=== PATIENT | male | born 1950 | race Hispanic/Latino ===

== ENCOUNTER 2019-10-08 05:48 | Inpatient (IN) | payer MEDICARE, SELFPAY ==
[2019-10-01 09:20] VITALS: BMI 38.0
[2019-10-08] VITALS (16 sets, daily range): BP systolic 106–145; BP diastolic 70–95; PULSE 58–80; RESP 10–17; TEMP 35.8–36.7; O2SAT 94–100; BMI 38.7
[2019-10-08] MEDS: LACTATED RINGERS 1,000 ML 42 ML IV ×2 (07:00→10:38)
[2019-10-08] MEDS: CELECOXIB 200 MG CAPSULE PO (07:06)
[2019-10-08] MEDS: PREGABALIN 75 MG CAPSULE PO (07:06)
[2019-10-08] MEDS: ACETAMINOPHEN 325 MG TABLET 975 MG PO ×2 (07:06→22:16)
[2019-10-08] MEDS: VANCOMYCIN 1,000 MG/200 ML PIGGYBACK 200 MG IV ×2 (07:13→19:07)
--- NOTE | 2019-10-08 07:40 | PM.PREOP ---
Pre-operative Note Interval Note History & Physical reviewed/Exam performed by Physician: Yes Changes to H&P: No
--- NOTE | 2019-10-08 07:59 | SUR.PREOP ---
Block start time [0744] . Monitoring initiated and maintained throughout procedure. Oxygen given per anesthesiologist instructions. Medications given by anesthesiologist. Patient remained stable throughout procedure, no adverse reactions noted. Block end time [0756].
[2019-10-08] MEDS: GENTAMICIN 200 MG in SODIUM CHLORIDE 0.9% 100 ML 105 ML IV (08:10)
--- NOTE | 2019-10-08 08:57 | SUR.OPER ---
Beach chair with Skytron shoulder positioner. Lower body on padded OR bed. Head in foam padded head cradle, secured with straps. Non-operative arm secured <90 degrees abduction. Pillow under knees. Safety belt at thigh. Cloth tape over blanket over lower legs.
[2019-10-08] MEDS: LIDOCAINE 1% W/EPI 20 ML INJ (09:25)
--- NOTE | 2019-10-08 10:00 | PM.PROC.1 ---
Procedures Date/Time Date of procedure: 10/08/19 Time of procedure: 07:40 General Procedure description: Ultrasound guided interscalene brachial plexus nerve block for post op pain control after R total shoulder arthroplasty by Dr. Shah. Risk and benefits of procedure discussed with patient. ASA monitoring applied to patient. O2 given via nasal cannula. 1 mg Versed and 100 mcg fentanyl given for procedural sedation. Skin site was prepped with chlorhexidine and allowed to fully dry. Sterile gloves, mask, hat and probe cover were used to maintain sterility. 2% lidocaine and 30ga needle was used to make a small skin wheal at needle insertion site. Under ultrasound guidance, a 21ga 50mm Pajunk needle was directed into the interscalene groove (middle/anterior scalenes) near the brachial plexus. Patient reported no parasthesias. After negative aspiration, 20 mL 0.5% ropivicaine and 10mg dexamethasone were injected around brachial plexus. Patient tolerated procedure well.
--- NOTE | 2019-10-08 10:51 | P.OP_ITS ---
Operative Date/Time/Diagnoses Date of procedure: 10/08/19 Time of procedure: 08:00 Pre-op diagnosis: End-stage arthritic changes to the right glenohumeral joint Post-op diagnosis: same Procedure & Clinicians Procedure: Right total shoulder arthroplasty Same procedure as scheduled: Yes Indications: End-stage arthritis right glenohumeral joint Surgeon: Isma Shah Processor Grain: Cj Mariee Anesthesia Type: General and Peripheral nerve block Operative Notes Findings: Significant arthritic changes to the glenohumeral joint with complete loss of cartilage. Anterior and inferior osteophytes. No sign of any rotator cuff tears. No significant loss of bony stock in the glenoid. Some loose bodies in the glenohumeral joint. Closure Type: primary Specimen(s): none sent Applied: drain(s) and implant(s) (Size 10 humeral stem. 52/20 humeral head. Large glenoid.) Estimated Blood Loss (mL): 200 Blood products transfused: none Procedure in detail: On date of service, Patient was met in the holding area. The operative site was signed and witnessed by the OR staff. The surgeries once again discussed with the patient and any remaining questions they had were answered fully. Patient was taken back to the operating theater and placed on the operating table in a supine position. Great care was taken to ensure that all bony prominences were properly padded. Patient was then placed into the beach chair position. The head and neck were properly positioned and secured. A timeout was performed verifying patient's name, procedure, and the operative site. The upper extremity was then prepped and draped in the normal sterile fashion. Previously, the bony anatomy and incision were marked out as well as injected with Marcaine with epinephrine. A deltopectoral approach was performed. 10 blade was used to incise the skin and fascial tissue. A deep knife was used to continue sharp dissection until the cephalic vein was visualized. The cephalic vein was dissected free allowing us to expose the deltopectoral interval. This interval was then developed. A Meehan elevator was used to free up the deltoid of any scarring both superficially as well as deeply. The vein and the deltoid were taken laterally while the pectoralis was taken medially. This gave us good visualization of the strap muscles. The clavipectoral fascia was removed and the strap muscles were then retracted medially with the pectoralis. This gave us stabilization of the subscapularis. The circumflex vessels were ligated and the subscapularis was sharply excised off the lesser tuberosity and then tagged. Once the subscapularis was released we're able to dislocate the shoulder. Patient had end-stage arthritic changes to the humeral head as well as the glenoid with large osteophytes anterior inferiorly as well as posteriorl y. A Ronger was then used to remove the osteophytes. Next, cutting guide was placed and a saw was used to remove the humeral head. Once the head was removed it was templated. A starting awl was then used to find the canal and then the humerus was reamed and broached. Trial stem was placed and a variety of heads were trialed. A protector placed for the osteotomy was then placed and and we turned our attention back to the subscapularis as well as the glenoid. The subscapularis was freed up and a 360? fashion. The degenerative anterior and inferior capsular tissue was removed. This was followed by removing the degenerative labral tissue from around the glenoid as well as the biceps insertion. This gave us good visualization of the glenoid. Glenoid trials were used until we found the appropriate fit and curvature. Next the center hole was drilled followed by reaming of the glenoid. The wound was copiously irrigated after reaming. Next the pegs were drilled and a trial glenoid was impacted into place. Once we were satisfied with the preparation of the glenoid, the final component was cemented into place. We had some difficulty inserting the glenoid component. We eventually had to remove the cement and read drill the distal holes for the glenoid fin. New cement was placed in the glenoid was then inserted and impacted in this provided a very secure placement of the glenoid with a nice flush fit. We Return to our attention back to the humerus. The protector plate was removed and heads were trialed once again and so we found the appropriate fit. The trials were removed and bone tunnels were made into the humeral neck. #2 FiberWire were passed through the bone tunnels for eventual subscapularis repair. The final stem and head were impacted into place and the shoulder was reduced. It was taken through range of motion and was felt to be stable in both posterior translation as well as external and internal rotation with abduction. The subscapularis was repaired back to the lesser tuberosity through the bone tunnels. This was then reinforced with soft tissue repair. Part of the rotator interval was then closed. A drain was placed and the rest of the wound was closed in a layered fashion. The shoulder was then cleaned dried and dressed and the patient was taken to the PACU in stable condition. Patient will follow our postoperative protocol for total shoulder arthroplasty. Complications: none Post-operative Condition: stable Disposition: PACU Plan for aftercare: Patient will follow our postoperative protocol for total shoulder arthroplasty. No external rotation past 0? for the 1st 6 weeks.
[2019-10-08] MEDS: fentaNYL 100 MCG/2 ML INJ IV (11:08)
[2019-10-08] MEDS: OXYCODONE IR 5 MG TABLET PO (11:28)
--- NOTE | 2019-10-08 11:44 | SUR.PHASEI ---
In pacu patient complained of some shortness of breath, stating he felt like he can't get a deep breath. Dr. Forde notified and discussed the nerve block causing this sensation to patient. Denies any chest pain.
[2019-10-08] MEDS: LACTATED RINGERS 1,000 ML 125 ML IV (12:40)
[2019-10-08] MEDS: OXYCODONE IR 10 MG TABLET PO ×3 (15:00→22:17)
--- NOTE | 2019-10-08 15:29 | CM.IDA ---
Initial DCP Assessment Note: Pt is a 69 yo male, resident of [place]. Pt is having shoulder surgery today w/Dr Shah, inpt status PCP: Jesus Manuel Lr Payer: Ramiro DRAKE Reviewed chart. Pt is expecting to return home once medically cleared, possibly POD#1, w/spouse to assist as needed. Pt off the floor for surgery today but this PRACTICE CONSULTANT will follow closely for further assessment of DC needs. P: DC home expected unless barriers identified today/tomorrow ALVIN Diallo
--- NOTE | 2019-10-08 15:57 | PC.NURSE ---
Patient received from PACU 1200, VSS, oriented to room and call light. Urinal placed within reach. Right shoulder in sling, to be non weight bearing as ordered. Aquacel dressing to incision site remains without drainage, ice pack in place. Hemovac drain intact and compressed. IV fluids started as ordered. Advance diet as tolerated, denies n/v or upset stomach. Bed alarm active for safety, with call light within reach. His is at bedside.
--- NOTE | 2019-10-08 16:56 | PT.IIE ---
Current Diagnoses Primary osteoarthritis, right shoulder (10/08/19) Surgery Performed Operation Date: 10/08/19 07:45 Actual Procedures p Total Shoulder Arthroplasty(Right) - Isma Shah MD Surgical History (Last Updated 10/01/19 @ 10:22 by Jannie Webster RN) History of arthroplasty of left knee (Acute ~2016) History of arthroplasty of right knee (Acute ~2014) History of vasectomy (Acute) Hx of bilateral cataract extraction (Acute) Hx of LASIK (Acute) Hx of microdiscectomy (Acute ~1998) Hx of repair of left rotator cuff (Acute) Hx of toe surgery (Acute 2006) Hx of tonsillectomy (Acute) Medical History (Last Updated 10/01/19 @ 10:22 by Jannie Webster RN) Arthritis (Acute) Watson's esophagus (Acute) Chronic a-fib (Acute) Chronic hepatitis C (Acute) Colon polyps (Acute) 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) COPD (chronic obstructive pulmonary disease) (Acute) Dermatofibrosarcoma protuberans of trunk (Acute ~2003) Easy bruisability (Acute) Enlarged prostate (Acute) Environmental asthma (Acute) Erectile dysfunction (Acute) Former smoker (Acute) Fragile skin (Acute) GI bleed due to NSAIDs (Acute 01/2016) HDL lipoprotein deficiency (Acute) HTN (hypertension) (Acute) Hyponatremia (Acute) Lichen sclerosus (Acute) Lower urinary tract symptoms (LUTS) (Acute) Mild ascending aorta dilation (Acute) MELANIE on CPAP (Acute) Osteoarthritis (Acute) Subacute pansinusitis (Acute) Thrombocytopenia (Acute) Physical Therapy Inpatient Evaluation/Re-Eval M1 PT/OT-IP Prior Functional Status Start: 10/08/19 18:54 Freq: NEEDED Status: Active Protocol: Document 10/08/19 16:56 DLM (Rec: 10/08/19 19:08 DLM [id number]) Medical Review Prior Functional Status Medical History Reviewed Yes Diet/Fluid Consistency Regular Communication WNL Mobility and Gait Independent without device Activities of Daily Living and IADL's Independent, was hard to use right UE for reaching up due to shoulder pain, able to lift 40 pound bags Social History Household Members spouse Living Arrangements House Number of Floors (Floors) One Floor Number of Stairs To Enter/Railing? 4 steps with rail M2 PT-IP Current Condition Start: 10/08/19 18:54 Freq: NEEDED Status: Active Protocol: Document 10/08/19 16:56 DLM (Rec: 10/08/19 19:08 [facility] [id number]) Physical Therapy Current Condition Current Condition Evaluation Date 10/08/19 Treatment Diagnosis right total shoulder Onset Date 10/08/19 Precautions Shoulder Precautions Sling,Internal Rotation to Body,No External Rotation,No Abduction,Pendulums Other Precautions no functional use right shoulder Weight Bearing Status Weight Bearing Status Non-Weight Bearing M3 PT-IP Subjective Start: 10/08/19 18:54 Freq: NEEDED Status: Active Protocol: Document 10/08/19 16:56 DLM (Rec: 10/08/19 19:08 [facility] [id number]) Subjective Physical Therapy Visit Type Type Initial Evaluation Visit Start Time 16:10 Visit Stop Time 16:56 Total Visit Minutes 46 Number of 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 Physical Therapy Visit Comments Patient Comments His shoulder is still numb, sensation is improving in the rest of his right arm Patient Goals Go home with his to help Therapy Pain Assessment Pain When Pain Assessed At Rest Pain Present Pain Present Pain Reported Location left shoulder Intensity 3 Scale Used Numeric (1 - 10) Description Aching Pain Management Techniques Apply Cold,Re-positioning M4 PT-IP Mobility and Gait Start: 10/08/19 18:54 Freq: NEEDED Status: Active Protocol: Document 10/08/19 16:56 DLM (Rec: 10/08/19 19:08 [facility] [id number]) PT-Bed Mobility Assessment Rolling Type of Rolling Roll to Left Level of Assist Independent Supine to Sit Supine to Sit Independent,Head of Bed Elevated Sit to Supine Sit to Supine Independent Scooting Scooting to Edge of Bed Independent Scooting Up and Down in Bed Independent PT-Transfer Assessment Sit to and From Stand Sit to and from Stand Standby Assistance Equipment Transfer Assistive Device None Transfers Transfer Destination Bed Transfer Technique Stand Step Pivot Transfer Ability Level of Assist Standby Assistance Comments Mobility Comments mild nausea after urinating in bathroom that resolved, mild tremors with second attempt at gait/mobility, no symptoms with third attempt of gait in his room Gait Assessment Gait Gait Assistance Required: Standby Assistance Distance (Feet) 60 Able to Maintain Weight Bearing Status Yes During Gait Assistive Devices Assistive Device None Gait Deviations General Gait Pattern Wide Based Gait Factors Limiting Gait Function Factors Limiting Gait Function Decreased Activity Tolerance PT-Balance Assessment Sitting Balance and Reactions Static Sitting Balance Ability Normal Dynamic Sitting Balance Ability Normal Standing Balance and Reactions Static Standing Balance Ability Good Dynamic Standing Balance Ability Good M5 PT-IP Objective Assessments Start: 10/08/19 18:54 Freq: NEEDED Status: Active Protocol: Document 10/08/19 16:56 DLM (Rec: 10/08/19 19:08 DL [id number]) Orientation Orientation/Cognition Level of Alertness Alert Orientation Name,Age,Birthday,Month,Date, Year,Day of Week,Place, Situation Language Function Ability No Deficits Noted Safety Awareness Understands Safety Issues Memory Description No Deficits Noted Gross Range of Motion Upper Extremity ROM Assessment Right Impaired Impairments post-op restrictions, pt in sling Lower Extremity ROM Assessment Within Functional Limits Strength Upper Extremity Strength Assessment Right Impaired Shoulder no functional use Elbow limited active movement today Wrist moving actively Hand moving actively Lower Extremity Strength Assessment Within Functional Limits Comments Strength Comments post-op weakness and restrictions right UE Coordination Assessment Gross Coordination Gross Coordination WNL Sensation Assessment Sensation Gross Sensation Right UE Impaired Light Touch Impaired Comments Sensation Comments post-op numbness right UE continues with pt reporting gradual improvement over time as block wears off M6 PT-IP Treatment Start: 10/08/19 18:54 Freq: NEEDED Status: Active Protocol: Document 10/08/19 16:56 DLM (Rec: 10/08/19 19:08 [facility] [id number]) Physical Therapy Treatment Education Education Provided Precautions,Safety Equipment Issued Equipment Type and Company sling provided by hospital after surgery, added extension to body strap to improve fit, adjusted sling for comfort and support Other Treatments Other Treatment Performed defer pendulums and elbow ROM to next visit M7 PT-IP Assessment and Plan Start: 10/08/19 18:54 Freq: NEEDED Status: Active Protocol: Document 10/08/19 16:56 DLM (Rec: 10/08/19 19:08 DL [id number]) PT Summary Assessment and Plan Potential Rehabilitation Potential Excellent Status of Condition at Evaluation Evolving Summary Impairments Pain,ROM,Strength,Transfers, Gait,Activity Tolerance Assessment Summary Brandan is alert and motivated to get out of bed after surgery today. He had mild nausea and shaking with first attempts at gait but it resolved with time. Pt fatigued after light activity this visit and returned to bed to rest. His is present today and participated in education. I anticipate he will be able to discharge home tomorrow if he continues to progress well. Goals Bed Mobility Goal Independent Transfer Goal Independent Gait Goal Independent Gait Distance 150 feet Other Goals Demonstrate post-op precautions and exercise for right shoulder Days to Meet Goals 2 Frequency of Treatment Frequency Of Treatment Twice a Day Treatment Plan Physical Therapy Treatment Plan Transfer Training,Gait Training,Therapeutic Exercise, Post Op Education,Discharge Planning,Hot or Cold Pack Recommendations To Nursing Amount of Assist Needed Standby Assistance Discharge Recommendations PT Discharge Recommendations Home with Assistance Other Discharge Recommendations will be able to assist him at home Transportation Needs at Discharge Private Vehicle
[2019-10-08] MEDS: WARFARIN 2.5 MG TABLET PO (17:02)
[2019-10-08] MEDS: LORATADINE 10 MG TABLET PO (22:17)
[2019-10-08] MEDS: DOCUSATE 100 MG CAPSULE PO (22:18)
[2019-10-08] MEDS: PANTOPRAZOLE 40 MG TABLET PO (22:18)
[2019-10-08] MEDS: METOPROLOL ER 25 MG TABLET PO (22:18)
[2019-10-08] MEDS: MAGNESIUM HYDROXIDE 30 ML UDC PO (22:19)
[2019-10-08] MEDS: LOSARTAN 50 MG TABLET 100 MG PO (22:19)
[2019-10-08] MEDS: FINASTERIDE 5 MG TABLET PO (22:20)
[2019-10-08] MEDS: DOXAZOSIN 4 MG TABLET 8 MG PO (22:24)
[2019-10-09] VITALS: BP 131/64; PULSE 85; RESP 18; TEMP 36.9; O2SAT 97
[2019-10-09] MEDS: OXYCODONE IR 10 MG TABLET PO ×3 (01:40→09:57)
[2019-10-09] MEDS: LORazepam 0.5 MG TABLET PO (04:43)
[2019-10-09 05:25] VITALS: BP 119/77; PULSE 97; RESP 20; TEMP 36.8; O2SAT 98
[2019-10-09 06:33] LABS: Hematocrit 31.5 % (41-53); Hemoglobin 11.2 g/dL (13.5-17.5); Mean Corpuscular HGB Conc 35.5 % (30-36); Mean Corpuscular Hemoglobin 34.7 PG (26-34); Mean Corpuscular Volume 97.5 fL (80-100); Platelet Count 105 X10^3/uL (150-400); Red Blood Cell Count 3.23 X10^6/uL (4.5-5.9); Red Cell Distribution Width 13.5 % (11.6-14.8); White Blood Cell Count 7.5 X10^3/uL (4.5-11.0)
[2019-10-09] MEDS: VANCOMYCIN 1,000 MG/200 ML PIGGYBACK 200 MG IV (06:34)
[2019-10-09 09:00] VITALS: BP 93/66; PULSE 102; TEMP 36.7; O2SAT 100
[2019-10-09] MEDS: ACETAMINOPHEN 325 MG TABLET 975 MG PO (09:56)
[2019-10-09] MEDS: MULTIVITAMIN 1 TABLET 1 TAB PO (09:57)
[2019-10-09] MEDS: DOCUSATE 100 MG CAPSULE PO (09:57)
[2019-10-09] MEDS: PANTOPRAZOLE 40 MG TABLET PO (09:57)
[2019-10-09] MEDS: TRIAMTERENE/HCTZ 37.5/25 TABLET 0.5 CAP PO (09:58)
--- NOTE | 2019-10-09 11:09 | PT.IPTN ---
Current Diagnoses Primary osteoarthritis, right shoulder (10/08/19) Surgery Performed Operation Date: 10/08/19 07:45 Actual Procedures p Total Shoulder Arthroplasty(Right) - Isma Shah MD Physical Therapy Treatment Note M2 PT-IP Current Condition Start: 10/08/19 18:54 Freq: NEEDED Status: Discharge Protocol: Document 10/08/19 16:56 DLM (Rec: 10/08/19 19:08 DLM [id number]) Physical Therapy Current Condition Current Condition Evaluation Date 10/08/19 Treatment Diagnosis right total shoulder Onset Date 10/08/19 Precautions Shoulder Precautions Sling,Internal Rotation to Body,No External Rotation,No Abduction,Pendulums Other Precautions no functional use right shoulder Weight Bearing Status Weight Bearing Status Non-Weight Bearing M3 PT-IP Subjective Start: 10/08/19 18:54 Freq: NEEDED Status: Discharge Protocol: Document 10/09/19 10:34 [place] (Rec: 10/09/19 14:08 KS [id number]) Subjective Physical Therapy Visit Type Type Treatment Note Visit Start Time 10:34 Visit Stop Time 11:09 Total Visit Minutes 35 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 Patient Goals Go home with his to help Therapy Pain Assessment Pain When Pain Assessed After Treatment Pain Present Pain Present Pain Reported Location right shoulder Intensity 5 Scale Used Numeric (1 - 10) Pain Behaviors Guarding Pain Management Techniques Re-positioning M4 PT-IP Mobility and Gait Start: 10/08/19 18:54 Freq: NEEDED Status: Discharge Protocol: Document 10/09/19 10:34 KS (Rec: 10/09/19 14:08 KS [id number]) PT-Bed Mobility Assessment Scooting Scooting to Edge of Bed Independent Scooting Up and Down in Bed Independent PT-Transfer Assessment Sit to and From Stand Sit to and from Stand Independent Equipment Transfer Assistive Device Gait Belt Transfers Transfer Destination Chair Transfer Technique Pt ambulated w/o AD Transfer Ability Level of Assist Independent Comments Mobility Comments Pt was sitting in chair upon arrival from therapy this morning. Pt had already dressed himself and had sling on. Independent for sit<>stand w/o AD. Pt then ambulated to stairs, completed stair training, returned to room and performed pendulums and doffing and donning of sling. Pt left in room w/ nursing staff present. Gait Assessment Gait Gait Assistance Required: Standby Assistance Distance (Feet) 200 Able to Maintain Weight Bearing Status Yes During Gait Assistive Devices Assistive Device Gait Belt Gait Deviations General Gait Pattern Wide Based Gait Factors Limiting Gait Function Factors Limiting Gait Function Decreased Activity Tolerance Comments Gait Comments Pt ambulated from room to stairs and back ~200 ft w/ sling on. Pt has slow, wide paced gait due to decreased activity. Stair Climbing Assessment Evaluation Level of Assist On Stairs Standby Assistance,1 Person Assistance Devices Stair Climbing Assistive Devices Left Railing Technique/Endurance Stair Climbing Direction Ascend and Descend Stair Climbing Technique Step Over Step Number of Steps Climbed 3 Stair Climbing Set # Repetitions (reps) 2 Comments Stair Climbing Comments Pt able to ascend/descend 3 steps x2 w/ SBA and step over step pattern. Pt safely and successfully completed stairs w/o cues. PT-Balance Assessment Sitting Balance and Reactions Static Sitting Balance Ability Normal Dynamic Sitting Balance Ability Normal Standing Balance and Reactions Static Standing Balance Ability Good Dynamic Standing Balance Ability Good M5 PT-IP Objective Assessments Start: 10/08/19 18:54 Freq: NEEDED Status: Discharge Protocol: Document 10/08/19 16:56 DLM (Rec: 10/08/19 19:08 DLM [id number]) Orientation Orientation/Cognition Level of Alertness Alert Orientation Name,Age,Birthday,Month,Date, Year,Day of Week,Place, Situation Language Function Ability No Deficits Noted Safety Awareness Understands Safety Issues Memory Description No Deficits Noted Gross Range of Motion Upper Extremity ROM Assessment Right Impaired Impairments post-op restrictions, pt in sling Lower Extremity ROM Assessment Within Functional Limits Strength Upper Extremity Strength Assessment Right Impaired Shoulder no functional use Elbow limited active movement today Wrist moving actively Hand moving actively Lower Extremity Strength Assessment Within Functional Limits Comments Strength Comments post-op weakness and restrictions right UE Coordination Assessment Gross Coordination Gross Coordination WNL Sensation Assessment Sensation Gross Sensation Right UE Impaired Light Touch Impaired Comments Sensation Comments post-op numbness right UE continues with pt reporting gradual improvement over time as block wears off M6 PT-IP Treatment Start: 10/08/19 18:54 Freq: NEEDED Status: Discharge Protocol: Document 10/09/19 10:34 KS (Rec: 10/09/19 14:08 KS [id number]) Physical Therapy Treatment Education Education Provided Precautions,Safety Equipment Issued Equipment Type and Company sling provided by hospital after surgery, added extension to body strap to improve fit, adjusted sling for comfort and support Other Treatments Other Treatment Performed Pendulums, reviewed precautions, elbow and wrist flexion/extension. M7 PT-IP Assessment and Plan Start: 10/08/19 18:54 Freq: NEEDED Status: Discharge Protocol: Document 10/09/19 10:34 KS (Rec: 10/09/19 14:08 KS [id number]) PT Summary Assessment and Plan Potential Rehabilitation Potential Excellent Status of Condition at Evaluation Evolving Summary Impairments Pain,ROM,Strength,Transfers, Gait,Activity Tolerance Assessment Summary Pt was eager to participate in therapy today and stated he feels ready to go home. Pt able to correctly don and doff sling w/o cues. Pt correctly performed pendulums and was aware of precautions. Ambulated ~200 ft SBA w/o AD and ascended/descended 3x2 stairs w/ step over step gait pattern and no cues. Goals Bed Mobility Goal Independent Transfer Goal Independent Gait Goal Independent Gait Distance 150 feet Other Goals Demonstrate post-op precautions and exercise for right shoulder Days to Meet Goals 2 Frequency of Treatment Frequency Of Treatment Twice a Day Treatment Plan Physical Therapy Treatment Plan Transfer Training,Gait Training,Therapeutic Exercise, Post Op Education,Discharge Planning,Hot or Cold Pack Recommendations To Nursing Amount of Assist Needed Standby Assistance Discharge Recommendations PT Discharge Recommendations Home with Assistance Other Discharge Recommendations will be able to assist him at home Transportation Needs at Discharge Private Vehicle
--- NOTE | 2019-10-09 11:21 | PC.NURSE ---
Right arm hemovac removed 10/09 @ 11:20 AM; patient tolerated well.
--- NOTE | 2019-10-09 13:09 | PC.NURSE ---
Coordinator removed hemovac from R shoulder and IV from left hand. Patient discharged home with . Provided education including his prescriptions, ways to avoid constipation with narcotics , shoulder precautions post-surgery, and signs and symptoms of infection. Reminded patient of his follow-up appointments. Patient understood not to drive while on narcotics and left via wheelchair with [employer]AL[employer] OFFICER and .
== END 2019-10-09 12:38 | disposition home or self-care (01) | DRG 483 ==
PROVIDERS: Admitting Provider Orthopaedic Surgery; Family Provider Family Medicine; PCP Family Medicine; Referring Provider Family Medicine; Visit Provider Orthopaedic Surgery
PROC: 0RQJ0ZZ Repair Right Shoulder Joint, Open Approach (ICD-10-PCS; CPT 23472; principal; 2019-10-08 07:45)
DX: M19.011 Primary osteoarthritis, right shoulder (principal); Z68.41 Body mass index [BMI] 40.0-44.9, adult; E66.01 Morbid (severe) obesity due to excess calories; G47.33 Obstructive sleep apnea (adult) (pediatric); I10 Essential (primary) hypertension; E78.5 Hyperlipidemia, unspecified; I48.91 Unspecified atrial fibrillation; Z79.01 Long term (current) use of anticoagulants; Z87.891 Personal history of nicotine dependence
CPT/HCPCS: 36415; 64450; 85027; 97116; 97162; 97530; C1776; J1100; J2250; J2405; J2704; J3010

== ENCOUNTER 2024-04-16 06:07 | Inpatient (IN) | payer MEDICARE, SELFPAY ==
[2019-10-08 12:15] VITALS: BMI 38.7
[2024-04-01 10:29] VITALS: BMI 44.1
[2024-04-16] VITALS (16 sets, daily range): BP systolic 93–145; BP diastolic 45–94; PULSE 61–77; RESP 14–20; TEMP 36.2–36.6; O2SAT 94–98; BMI 44.1; BMI 44.8
--- NOTE | 2024-04-16 06:00 | DI.RAD.S_ITS ---
PROCEDURE: XR SHOULDER RT 1V Changes. INDICATIONS: TSA TECHNIQUE: 1 views of the shoulder were acquired. COMPARISON: None. FINDINGS: Single view markedly limits evaluation. Bones: Status post right reverse total shoulder arthroplasty which appears intact on limited single view. Soft tissues: Postsurgical changes about the right shoulder. Right lung volume is low with basilar atelectasis. IMPRESSION: Limited view of right reverse total shoulder arthroplasty which appears intact with expected postsurgical changes. Dictated by: Areli Valdes M.D. on 04/16/2024 at 12:00 Approved by: Areli Valdes M.D. on 04/16/2024 at 12:22
[2024-04-16] MEDS: ALBUTEROL/IPRATROPIUM 3 ML AMPUL INH ×2 (07:16→12:23)
[2024-04-16] MEDS: ACETAMINOPHEN 325 MG TABLET 975 MG PO (07:16)
[2024-04-16] MEDS: LACTATED RINGERS 1,000 ML 42 ML IV ×2 (07:17→08:50)
--- NOTE | 2024-04-16 07:39 | PM.PREOP ---
Pre-operative Note Interval Note History & Physical reviewed/Exam performed by Physician: Yes Changes to H&P: No
[2024-04-16] MEDS: CEFAZOLIN VIAL 3 GM in SODIUM CHLORIDE 0.9% 100 ML IV ×2 (07:44→10:59)
--- NOTE | 2024-04-16 08:27 | SUR.OPER ---
Beach chair with Ravin/Cosmo shoulder positioner. Lower body on padded OR bed. Head in foam padded head cradle, secured with straps. Non-operative arm padded and secured with tape <90 degrees abduction. Pillow under knees. Safety belt at thigh. Cloth tape over blanket over lower legs.
[2024-04-16] MEDS: BUPIVACAINE 0.25% (PF) 30 ML, EPINEPHrine 0.15 MG INJ (08:36)
[2024-04-16] MEDS: TRANEXAMIC ACID 1,000 MG VIAL 1000 MG INJ ×2 (08:37→10:48)
--- NOTE | 2024-04-16 11:15 | PM.OP.1 ---
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 Extensive workup has not demonstrated any infection or implant loosening. Risks and benefits of surgery were discussed again including the risk of infection, damage to internal structures, bleeding, nerve injury, instability, need for revision surgery, blood clots, anesthesia and . No guarantees were made regarding outcomes. Patient expressed understanding and accepted these risks and wished to go forward with surgery and consent was signed. Surgeon: Chad Jacob Director [employer]ery [employer]: [facility]vis Anesthesia Type: General Operative Notes Findings: Findings: Well-seated stem and glenoid component, dysfunctional rotator cuff Closure Type: primary Specimen(s): none sent Prosthetic devices, grafts, tissues, transplants, or devices: Tornier implants Base plate: 25 mm, +6 mm offset Glenosphere: 39 mm Stem: Perform fracture stem size 16 Poly: 9 mm lateralized Estimated Blood Loss (mL): 200 Blood products transfused: none Procedure in detail: Patient was seen in the preoperative holding unit. The correct right shoulder was identified and marked with my initials. Again we discussed the risks and benefits of surgery and they wished to go forward with surgery. The patient was brought back to the operating room and placed supine on the operating table. Smooth endotracheal intubation was performed by anesthesia. All prominences were padded and they were placed into the beach chair position. Intravenous antibiotics were given. The right shoulder was then prepped with the standard sterile preparation and draping. A time-out was then performed in my initials were again identified on the correct shoulder. 1 g of IV tranexamic acid was given. A standard deltopectoral incision was made. Skin flaps were made. The cephalic vein was identified and retracted laterally. This was protected throughout the remainder of the case. Sharp dissection was made along the deltoid, subacromial and subcoracoid space to release adhesions. The conjoined tendon was identified and the axillary nerve was palpated and continuous using the tug test. It was protected throughout the remainder of the case. A brown retractor was placed underneath the deltoid muscle and a darach retractor underneath the conjoint tendon. The subscapularis muscle was ntoed to be intact. We then began a subscapularis peel. The subscapularis was tagged with an Ethibond suture. A 360 degree circumferential release of the subscapularis was performed with protection of the axillary nerve. The coracohumeral ligament was released at the base of the coracoid. The shoulder was then dislocated. The rotator cuff was noted to be deficient. The previous humeral head was removed. A pencil tip bur was used to excavate bone around the edges of the proximal stem, flexible osteotomes were then used to create an osteotomy and remove the stem. A fracture stem trial broach was used to size up to a size 16. This was left in the canal well we turned our attention to the glenoid After retracting the humeral head posteriorly a circumferential release was performed of the capsule with protection of the axillary nerve. The labrum was then released starting at the biceps anchor and going around the rim a small amount of triceps was released from the inferior glenoid. The previous polyethylene was then removed using osteotome and rongeur. Cultures were sent. After adequate cartilage and debris was removed the boss was reamed and the centeral hole was drilled and measured. The base plate was then implanted and screwed into place. The peripheral screws were then sequentially drilled, measured, and placed. A 39 +6 lateralized glenosphere was then selected and screwed into place onto the base plate. Turning back to the humerus, the humeral head was delivered and trialed with a +9 retentive. The arm was taken through range of motion and this was felt to be stable. The trial was then removed and a dilute Betadine wash was then performed with 1 L of sterile saline. The for placing the final implant, drill holes were placed in the greater tuberosity fractured piece. A cerclage tape was also placed. The final stem was then impacted into the humerus. The shoulder was then reduced and again brought through range of motion and was felt to be stable. The subscapularis was then repaired using a modified racking hitch with nice loupes. The deltopectoral interval was then closed with #2 Ethibond. The skin was closed with 2-0 vicryl and 3-0 Monocryl followed by Aquacel dressing. Patient was awoken from anesthesia and brought back to the postoperative recovery unit without issue. They were placed into a sling. Assisting participation: This operation could not have been safely performed (without compromising the technical results or length of the procedure) without the assistance of a skilled campus administrative assistant. The campus administrative assistant was medically necessary for proper positioning, retraction and manipulation of instruments, proper exposure, graft prep, and manipulation of tissue. Post-operative Condition: stable Disposition: Acute Care Plan for aftercare: Postoperative instructions: Sling to remain on for 6 weeks. No external rotation past neutral for 6 weeks. Okay for the sling to come off for shower. Okay to shower over the Aquacel dressing. If any water gets underneath the dressing, remove the dressing. First postoperative visit in 2 weeks.
[2024-04-16] MEDS: OXYCODONE IR 5 MG TABLET PO ×3 (12:04→21:06)
[2024-04-16] MEDS: OXYCODONE IR 10 MG TABLET PO (13:11)
--- NOTE | 2024-04-16 13:11 | PT-IP ANOTE ---
PT order received. PT reviews chart and checks in on pt and speaks with nsg. Pt states that he has some SOB and confusion right now and nsg reports that pt will stay the night. PT, pt, and nsg agree to hold PT eval currently and con't PT efforts.
[2024-04-16] MEDS: LACTATED RINGERS 1,000 ML 100 ML IV (13:12)
--- NOTE | 2024-04-16 14:27 | P.CONS_ITS ---
History of Present Illness Consult details Date Patient Seen: 04/16/24 Time Patient Seen: 14:28 Chief complaint: Right TSA revision Reason for consult: afib and copd Requesting provider: Chad Jacob Narrative: This is a 74 year old male with PMH of hep C cirrhosis, chronic pancytopenia, chronic afib with recent watchmann procedure, MELANIE, COPD, obesity, and HTN who had a Revision of right Humeral and glenoid component to reverse total shoulder arthoplasty with orthopedics today. Patient denies complaints currently including no shortness of breath, nausea, vomiting, abdominal pain, chest pain. 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 Consultation is for assistance with medical management. Meds Home Medications and Allergies Home Medications Medication Instructions Recorded Confirmed Type doxazosin 8 mg tablet (Cardura) 8 mg PO BEDTIME ##0 11/24/12 04/16/24 History multivitamin 1 cap PO DAILY ##0 11/24/12 03/31/24 History fluticasone propionate 50 2 inh inhalation DAILY 10/01/19 04/16/24 History mcg/actuation blister powder for inhalation loratadine 10 mg tablet 10 mg PO DAILY 10/01/19 03/31/24 History omeprazole 40 mg capsule,delayed 40 mg PO BID 10/01/19 04/16/24 History release cyclobenzaprine 5 mg tablet 5 mg PO BEDTIME PRN muscle spasm 10/09/19 04/16/24 Rx #14 tabs oxycodone 5 mg tablet 5 mg PO Q4-6H PRN pain (scale 10/09/19 03/31/24 Rx score 7-10) #20 tabs acetaminophen 650 mg 650 mg PO Q12H 03/31/24 04/16/24 History tablet,extended release amlodipine 5 mg tablet 5 mg PO DAILY 03/31/24 04/16/24 History aspirin 81 mg capsule 81 mg PO DAILY 03/31/24 04/16/24 History clopidogrel 75 mg tablet 75 mg PO DAILY 03/31/24 04/16/24 History fluticasone 250 mcg-salmeterol 50 1 inh inhalation BID 03/31/24 04/16/24 History mcg/dose blistr powdr for inhalation metoprolol succinate 50 mg 50 mg PO BEDTIME 03/31/24 04/16/24 History tablet,extended release 24 hr telmisartan 80 mg tablet 80 mg PO BEDTIME 03/31/24 04/16/24 History albuterol sulfate 90 mcg/actuation 2 puff inhalation QD-TID asthma 04/16/24 04/16/24 History aerosol inhaler finasteride 5 mg tablet 5 mg PO BEDTIME 04/16/24 04/16/24 History Allergies Allergy/AdvReac Type Severity Reaction Status Date / Time latex [LATEX] Allergy Severe BLISTERS Verified 04/16/24 07:07 adhesive tape [ADHESIVE TAPE] Allergy Mild SKIN Verified 04/16/24 07:07 IRRITATION AND BLISTERS Penicillins [PENICILLINS] Allergy Mild RASH Verified 04/16/24 07:07 morphine AdvReac Severe Vomiting Verified 04/16/24 07:07 propoxyphene [PROPOXYPHENE] AdvReac Mild HEADACHE Verified 04/16/24 07:07 Review of Systems Review of Systems Narrative: All other systems reviewed with the patient and are negative unless otherwise stated. Exam Vital Signs (past 8 hours): - 04/16/24 06:49 04/16/24 11:24 04/16/24 11:30 Temperature 97.8 F 97.2 F L Pulse Rate 67 61 61 Respiratory Rate 16 15 16 Blood Pressure 145/94 H 93/45 L 123/74 Pulse Oximetry 97 94 98 Oxygen Delivery Method Room Air Nasal Cannula Room Air Oxygen Flow Rate 4 04/16/24 11:35 04/16/24 11:40 04/16/24 11:45 Temperature 97.2 F L 97.2 F L Pulse Rate 64 77 71 Respiratory Rate 15 16 16 Blood Pressure 120/70 124/65 128/78 Pulse Oximetry 98 98 98 Oxygen Delivery Method Nasal Cannula Nasal Cannula Room Air Oxygen Flow Rate 2 04/16/24 12:00 04/16/24 12:33 04/16/24 13:00 Temperature 97.4 F L Pulse Rate 70 61 Respiratory Rate 16 14 Blood Pressure 128/78 120/70 Pulse Oximetry 98 98 Oxygen Delivery Method Room Air Nasal Cannula Oxygen Flow Rate 2 04/16/24 13:00 Temperature 97.4 F L Pulse Rate 61 Respiratory Rate 14 Blood Pressure 132/80 Pulse Oximetry 98 Oxygen Delivery Method Oxygen Flow Rate 2 Oxygen Delivery Method Nasal Cannula Oxygen Flow Rate 2 Narrative Exam Narrative: General:? Patient is well developed and well nourished, in no distress at this time. HEENT:? Normocephalic, atraumatic, extraocular muscles intact, oral pharynx is clear and mucous membranes are moist. Neck: supple and symmetric, trachea is midline, no cervical adenopathy. Chest:? Normal AP diameter and contour without kyphoscoliosis, no tachypnea, equal chest rise bilaterally. Lungs:? CTA b/l no wheezing rhonchi or rales. Cardio:?RRR no m/r/g. Abdomen: S NT ND. Extremities: trace b/l pedal edema, non-pitting. Skin:? Pale,? Warm to touch,dry and intact without rashes, ulcerations or petechiae.? Neuro:? Alert and orientated x3,? sensation to touch intact in all extremities, no gross deficits noted of cranial nerves. Psych:? Patient has a well-kept appearance, appropriate affect, mental status attitude thought context and judgment are appropriate for age. 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) COPD (chronic obstructive pulmonary disease) Lichen sclerosus HTN (hypertension) Environmental asthma Chronic hepatitis C Colon polyps GI bleed due to NSAIDs (01/2016) Surgical History History of nasal surgery (05/29/12) 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) Hx of tonsillectomy History of vasectomy Hx of LASIK Hx of bilateral cataract extraction Hx of toe surgery (2006) Hx of microdiscectomy (~1998) Hx of repair of left rotator cuff History of arthroplasty of left knee (~2016) History of arthroplasty of right knee (~2014) Social History household members: spouse Tobacco & Substance Use Smoking Status: Former smoker alcohol intake: current Assessment & Plan Assessment & Plan narrative: 1. Chronic atrial fibrillation - continue home metoprolol, aspirin and plavix. Had recent watchmann procedure 01/2024. 2. HTN - continue home metoprolol, telmisartan (replaced with formulary alternative losartan), and amlodipine - Stop additional IV fluids with recent hyponatremia and cessation of home diuretic recently. 3. BPH - continue home finasteride 4. MELANIE - continue CPAP overnight 5. COPD without exacerbation - RT eval and treat already ordered, along with formulary nebulizer therapies to replace home inhalers. - continue albuterol nebs prn for dyspnea. - patient was saturating 96-97% on room air during my evaluation, no respiratory failure, goal O2 saturations 88-96%. Code: Full, surrogate is patient's spouse DVT: per primary team I have utilized all available immediate resources to obtain, update, or review the patient's current medications. Dispo: given no need for acute medical changes at this time, there is no need for ongoing consultation at this time. Should patient's status change, do not hesitate to reach out with additional questions or concerns. Additional history obtained via discussions with the nursing staff and review of outside records. These discussions contributed to the creation of the above assessment and plan. I have reviewed patient's presenting documentation, labs, and imaging personally. Time-Based Coding :: [TOTAL MINUTES] spent with patient and on the chart (including review of chart, obtaining history, exam, reviewing outside data, placing orders, documenting exam and treatment plan, and counseling patient) on [DATE].
[2024-04-16] MEDS: ALBUTEROL 2.5 MG/3 ML NEB (ADULT) INH ×2 (16:33→20:04)
[2024-04-16] MEDS: ACETAMINOPHEN 325 MG TABLET PO ×2 (16:49→21:05)
[2024-04-16] MEDS: CEFAZOLIN 2 GM/100 ML PREMIX 100 ML IV (17:42)
[2024-04-16] MEDS: BUDESONIDE 0.5 MG/2 ML NEB INH (20:04)
[2024-04-16] MEDS: METOPROLOL ER 50 MG TABLET PO (21:05)
[2024-04-16] MEDS: CYCLOBENZAPRINE 10 MG TABLET 5 MG PO (21:05)
[2024-04-16] MEDS: LOSARTAN 50 MG TABLET 100 MG PO (21:06)
[2024-04-16] MEDS: PANTOPRAZOLE DR 40 MG TABLET PO (21:06)
[2024-04-16] MEDS: DOCUSATE 100 MG CAPSULE PO (21:06)
[2024-04-16] MEDS: FINASTERIDE 5 MG TABLET PO (21:06)
[2024-04-17] MEDS: CEFAZOLIN 2 GM/100 ML PREMIX 100 ML IV (01:09)
[2024-04-17] MEDS: OXYCODONE IR 10 MG TABLET PO ×4 (02:23→13:50)
[2024-04-17 05:34] LABS: Add Manual Diff / Slide Review NO; Basophils Absolute Auto 0 /uL (0-100); Eosinophils Absolute Auto 0 /uL (0-450); Hematocrit 28.5 % (41-53); Hemoglobin 10.1 g/dL (13.5-17.5); Lymphocytes Absolute Auto 500 /uL (1100-4500); Lymphocytes Percent Auto 5.3 % (25-40); Mean Corpuscular HGB Conc 35.4 % (30-36); Mean Corpuscular Hemoglobin 35.5 PG (26-34); Mean Corpuscular Volume 100.2 fL (80-100); Monocytes Absolute Auto 800 /uL (0-900); Monocytes Percent Auto 8.6 % (3-14); Neutrophils Absolute Auto 7600 /uL (1500-7000); Neutrophils Percent Auto 86.1 % (50-75); Platelet Count 127 X10^3/uL (150-400); Red Blood Cell Count 2.85 X10^6/uL (4.5-5.9); Red Cell Distribution Width 13.7 % (11.6-14.8); White Blood Cell Count 8.8 X10^3/uL (4.5-11.0)
[2024-04-17 05:51] LABS: BUN Creatinine Ratio 29.2 (6-22); Blood Urea Nitrogen 19 mg/dL (9-20); Calcium 8.8 mg/dL (8.4-10.2); Carbon Dioxide 22 mmol/L (22-32); Chloride 97 mmol/L (98-107); Estimated Glomerular Filt Rate > 60 mL/min (>60); Glucose 136 mg/dL (80-110); HEMOLYSIS 18 (0-50); Potassium 4.7 mmol/L (3.4-5.1); Sodium 127 mmol/L (137-145)
[2024-04-17 07:00] VITALS: BP 146/87; PULSE 79; RESP 16; TEMP 36.6; O2SAT 99
[2024-04-17] MEDS: AMLODIPINE 5 MG TABLET PO (08:46)
[2024-04-17] MEDS: LORATADINE 10 MG TABLET PO (08:46)
[2024-04-17] MEDS: PANTOPRAZOLE DR 40 MG TABLET PO (08:47)
[2024-04-17] MEDS: ACETAMINOPHEN 325 MG TABLET PO ×2 (08:47→13:51)
[2024-04-17] MEDS: DOCUSATE 100 MG CAPSULE PO (08:47)
[2024-04-17] MEDS: ASPIRIN EC 81 MG TABLET PO (08:47)
[2024-04-17] MEDS: CLOPIDOGREL 75 MG TABLET PO (08:47)
[2024-04-17] MEDS: MULTIVITAMIN 1 TABLET 1 TAB PO (08:47)
[2024-04-17] MEDS: polyethylene glycoL 3350 17 GM POWD.PACK PO (08:47)
--- NOTE | 2024-04-17 09:45 | PT.IIE ---
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) History of vasectomy Hx of bilateral cataract extraction Hx of LASIK Hx of microdiscectomy (~1998) Hx of repair of left rotator cuff Hx of toe surgery (2006) Hx of tonsillectomy Medical History (Last Reviewed 04/16/24 @ 15:18 by Alex Max DO) Arthritis Asthma Watson's esophagus Chronic a-fib Chronic hepatitis C Cirrhosis Colon polyps 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) COPD (chronic obstructive pulmonary disease) Dermatofibrosarcoma protuberans of trunk (~2003) Easy bruisability Enlarged prostate Environmental asthma Erectile dysfunction Former smoker Fragile skin GI bleed due to NSAIDs (01/2016) HDL lipoprotein deficiency HTN (hypertension) Hyponatremia Lichen sclerosus Lower urinary tract symptoms (LUTS) Mild ascending aorta dilation MELANIE on CPAP Osteoarthritis Pancytopenia Presence of Watchman left atrial appendage closure device (02/26/24) Subacute pansinusitis Thrombocytopenia Physical Therapy Inpatient Evaluation/Re-Eval M1 PT/OT-IP Prior Functional Status Start: 04/16/24 13:06 Freq: NEEDED Status: Active Protocol: Document 04/17/24 09:45 DLM (Rec: 04/17/24 10:49 DLM [id number]) Medical Review Prior Functional Status Medical History Reviewed Yes Diet/Fluid Consistency Regular Communication WNL Mobility and Gait Independent without device, ambulates community distances, mild shortness of breath due to COPD Activities of Daily Living and IADL's Independent Prior Functional Level (Other details) difficulty using right UE before surgery after his bicep tendon injury Social History Household Members spouse Living Arrangements House Number of Floors (Floors) One Floor Number of Stairs To Enter/Railing? 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 M2 PT-IP Current Condition Start: 04/16/24 13:06 Freq: NEEDED Status: Active Protocol: Document 04/17/24 09:45 DLM (Rec: 04/17/24 10:49 DL [id number]) Physical Therapy Current Condition Current Condition Evaluation Date 04/17/24 Treatment Diagnosis right total shoulder revision Onset Date 04/16/24 M3 PT-IP Subjective Start: 04/16/24 13:06 Freq: NEEDED Status: Active Protocol: Document 04/17/24 09:45 DLM (Rec: 04/17/24 10:49 DLM [id number]) Subjective Physical Therapy Visit Type Type Initial Evaluation Visit Start Time 09:00 Visit Stop Time 09:45 Number of [employer]TING [employer] Visits 0 Physical Therapy Visit Comments Patient Comments He feels ready to go home today. He has experience using one arm after prior shoulder surgery. He has out-pt Physical Therapy scheduled after discharge. Patient Goals Discharge home Therapy Pain Assessment Pain When Pain Assessed At Rest Pain Present Pain Present Pain Reported Location right shoulder Intensity 7 Scale Used Numeric (0 - 10) Description Aching,Tender Pain Behaviors Guarding Pain Management Techniques Apply Cold,Re-positioning M4 PT-IP Mobility and Gait Start: 04/16/24 13:06 Freq: NEEDED Status: Active Protocol: Document 04/17/24 09:45 DLM (Rec: 04/17/24 10:49 DL [id number]) PT-Bed Mobility Assessment Rolling Type of Rolling Roll to Left Level of Assist Independent Supine to Sit Supine to Sit Independent Sit to Supine Sit to Supine Independent Scooting Scooting to Edge of Bed Independent PT-Transfer Assessment Sit to and From Stand Sit to and from Stand Independent,Use of Upper Extremities Equipment Transfer Assistive Device None Transfers Transfer Destination Bed,Chair Transfer Technique Stand Step Pivot Transfer Ability Level of Assist Independent,Use of Upper Extremities Comments Mobility Comments Pt getting in/out on left side of bed which is also available at home. He is able to mobilize with no functional use right shoulder. Pt shows good use of left UE to assist with safe mobility. No light- headedness, no dizziness during activity this visit. Pt has been up to recliner this AM with nursing to eat breakfast. Gait Assessment Gait Gait Assistance Required: Independent Distance (Feet) 200 Able to Maintain Weight Bearing Status Yes During Gait Assistive Devices Assistive Device None Gait Deviations General Gait Pattern Within Normal Limits,Wide Based Gait Factors Limiting Gait Function Factors Limiting Gait Function Decreased Activity Tolerance, Pain Comments Gait Comments No losses of balance during gait, Right UE in sling with wedge in place. Pt is tolerating sling well. He demonstrates safe protection techniques for right shoulder during mobility. Adjusted the sling as needed for pt's comfort. He has mild shortness of breath and wheezy breath sounds that he is able to manage with brief standing rest breaks (pt reports a hx of this due to his COPD) Stair Climbing Assessment Evaluation Level of Assist On Stairs Independent Devices Stair Climbing Assistive Devices Left Railing Technique/Endurance Stair Climbing Direction Ascend and Descend Stair Climbing Technique Step Over Step,Step to Step Number of Steps Climbed 3 Query Text: Stair Climbing Set # Repetitions (reps) 1 Comments Stair Climbing Comments no difficulty with step this visit PT-Balance Assessment Sitting Balance and Reactions Static Sitting Balance Ability Good Dynamic Sitting Balance Ability Good Standing Balance and Reactions Static Standing Balance Ability Good Dynamic Standing Balance Ability Good Device Used none M5 PT-IP Objective Assessments Start: 04/16/24 13:06 Freq: NEEDED Status: Active Protocol: Document 04/17/24 09:45 DLM (Rec: 04/17/24 10:49 DLM [id number]) Orientation Orientation/Cognition Level of Alertness Alert Orientation Name,Age,Birthday,Month,Date, Year,Day of Week,Place, Situation Language Function Ability No Deficits Noted Safety Awareness Understands Safety Issues Memory Description No Deficits Noted Comments verbalizes good awareness of post-op issues due to prior surgery Gross Range of Motion Upper Extremity ROM Assessment Right Impaired Impairments no functional use right shoulder post-op, UE in sling Lower Extremity ROM Assessment Within Functional Limits Strength Upper Extremity Strength Assessment Right Impaired Shoulder no functional use post-op Lower Extremity Strength Assessment Within Functional Limits Coordination Assessment Gross Coordination Gross Coordination WNL Sensation Assessment Sensation Gross Sensation WNL Comments Sensation Comments he reports surgical block has worn off on right UE Muscle Tone Muscle Tone WNL Yes M6 PT-IP Treatment Start: 04/16/24 13:06 Freq: NEEDED Status: Active Protocol: Document 04/17/24 09:45 DLM (Rec: 04/17/24 10:49 DL [id number]) Physical Therapy Treatment Education Education Provided Precautions,Weight Bearing Status,Safety Other Treatments Other Treatment Performed will defer range of motion exercises to Occupational Therapy today M7 PT-IP Assessment and Plan Start: 04/16/24 13:06 Freq: NEEDED Status: Active Protocol: Document 04/17/24 09:45 DLM (Rec: 04/17/24 10:49 [facility] [id number]) PT Summary Assessment and Plan Potential Rehabilitation Potential Excellent Status of Condition at Evaluation Evolving Summary Impairments Pain,ROM,Strength,Activity Tolerance Progress Towards Goals Safe For Discharge Assessment Summary Brandan is progressing well today post-op day one of right total shoulder revision. He demonstrates independent mobility and gait without a device. He had no light- headedness nor dizziness this visit. He has also been up moving with nursing. He has mild shortness of breath with activity that he can manage with brief standing rest breaks which appear related to his COPD. He appears safe to discharge home with support of his when he is medically cleared. No further skilled Physical Therapy needed this admission. Pt reports he is scheduled for out-pt Physical Therapy after discharge. Notified his nurse that he has cleared PT. Discussed his case with Occupational Therapy for continuity of care. Frequency of Treatment Frequency Of Treatment Discharge Treatment Plan Other Recommendations and Next Treatment training completed this visit Focus Precautions Shoulder Precautions Sling,Internal Rotation to Body,No External Rotation,No Abduction Brace right shoulder sling in place Weight Bearing Status Weight Bearing Status Non-Weight Bearing Allowed Weight Bearing Amount (enter % right shoulder or #) (%) Recommendations To Nursing Amount of Assist Needed Independent Discharge Recommendations PT Discharge Recommendations Home with Assistance, Outpatient PT Transportation Needs at Discharge Private Vehicle
--- NOTE | 2024-04-17 11:00 | OT.IP.EVAL ---
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) COPD (chronic obstructive pulmonary disease) Dermatofibrosarcoma protuberans of trunk (~2003) Easy bruisability Enlarged prostate Environmental asthma Erectile dysfunction Former smoker Fragile skin GI bleed due to NSAIDs (01/2016) HDL lipoprotein deficiency HTN (hypertension) Hyponatremia Lichen sclerosus Lower urinary tract symptoms (LUTS) Mild ascending aorta dilation MELANIE on CPAP Osteoarthritis Pancytopenia Presence of Watchman left atrial appendage closure device (02/26/24) Subacute pansinusitis Thrombocytopenia Surgical History (Last Reviewed 04/16/24 @ 15:18 by Alex Max DO) History of arthroplasty of left knee (~2016) History of arthroplasty of right knee (~2014) History of nasal surgery (05/29/12) 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) History of vasectomy Hx of bilateral cataract extraction Hx of LASIK Hx of microdiscectomy (~1998) Hx of repair of left rotator cuff Hx of toe surgery (2006) Hx of tonsillectomy Occupational Therapy Inpatient Evaluation/Re-Eval M1 PT/OT-IP Prior Functional Status Start: 04/16/24 13:06 Freq: NEEDED Status: Complete Protocol: Document 04/17/24 09:45 DL (Rec: 04/17/24 10:49 DL [id number]) Medical Review Prior Functional Status Medical History Reviewed Yes Diet/Fluid Consistency Regular Communication WNL Mobility and Gait Independent without device, ambulates community distances, mild shortness of breath due to COPD Activities of Daily Living and IADL's Independent Prior Functional Level (Other details) difficulty using right UE before surgery after his bicep tendon injury Social History Household Members spouse Living Arrangements House Number of Floors (Floors) One Floor Number of Stairs To Enter/Railing? 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 M1 PT/OT-IP Prior Functional Status Start: 04/17/24 12:19 Freq: NEEDED Status: Active Protocol: Document 04/17/24 10:15 [facility] (Rec: 04/17/24 12:39 [facility] [id number]) Medical Review Prior Functional Status Medical History Reviewed Yes Diet/Fluid Consistency Regular Communication WNL Mobility and Gait Independent without device, ambulates community distances, mild shortness of breath due to COPD Activities of Daily Living and IADL's Independent Prior Functional Level (Other details) difficulty using right UE before surgery after his bicep tendon injury Social History Household Members spouse Living Arrangements House Number of Floors (Floors) One Floor Number of Stairs To Enter/Railing? 4 step with rail. 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 M2 OT-IP Current Condition Start: 04/17/24 12:19 Freq: Status: Active Protocol: Document 04/17/24 10:15 [facility] (Rec: 04/17/24 12:39 [facility] [id number]) Occupational Therapy Current Condition Current Condition Evaluation Date 04/17/24 Treatment Diagnosis S/P revision R humeral glenoid comp.-reverse TSA Diagnosis Onset Date 04/16/24 M3 OT- IP Subjective and Pain Start: 04/17/24 12:19 Freq: Status: Active Protocol: Document 04/17/24 10:15 [facility] (Rec: 04/17/24 12:39 [facility] [id number]) OT- Subjective Occupational Therapy Visit Type Type Initial Evaluation Visit Start Time 10:15 Visit Stop Time 11:00 Occupational Therapy Visit Comments Patient Comments Pt agreed to get dressed. Patient/Caregiver Goals To go home. OT Pain Assessment Pain When Pain Assessed At Rest Pain Present Pain Present Pain Reported M4 OT- IP ADL's Start: 04/17/24 12:19 Freq: Status: Active Protocol: Document 04/17/24 10:15 [facility] (Rec: 04/17/24 12:39 [facility] [id number]) OT ADL-Dressing General Eval Upper Body Dressing Ability Maximum Assistance Areas Needing Assistance Pull-Over Shirt Comments OT Dressing Comments Assist for sling management needs. Able to adjust and redo strapping for the sling. M7 OT- IP Mobility and Balance Start: 04/17/24 12:19 Freq: Status: Active Protocol: Document 04/17/24 10:15 [facility] (Rec: 04/17/24 12:39 [facility] [id number]) OT-Transfer Assessment Sit to and From Stand Sit to and from Stand Independent Transfers Transfer Ability Independent Technique Transfer Destination Chair Comments Mobility Comments Pt is independent on his feet. M8 OT- IP Objective Assessments Start: 04/17/24 12:19 Freq: Status: Active Protocol: Document 04/17/24 10:15 [facility] (Rec: 04/17/24 12:39 [facility] [id number]) OT Gross Range of Motion Upper Extremity Range of Motion Assessment Right Impaired OT Strength Upper Extremity Strength Assessment Right Impaired M9 OT- IP Assessment and Plan Start: 04/17/24 12:19 Freq: Status: Active Protocol: Document 04/17/24 10:15 [facility] (Rec: 04/17/24 12:39 [facility] [id number]) OT Summary Assessment and Plan Potential Rehabilitation Potential Excellent Analytic Complexity at Evaluation Low Summary Progress Towards Goals Safe For Discharge Assessment Summary Pt low complexity and that his will be assist him for ADl needs and sling management . Pt to go home when medically stable. Frequency of Treatment Frequency Of Treatment Discharge
--- NOTE | 2024-04-17 12:14 | CM.DANOTE ---
DCP Assessment Note: Pt is a 74yo male, resident of [place] is admitted for a R TSA revision. Pt lives in a house with his , Oriana. Pt's Primary Care Provider is Dr. Jesus Manuel Lr and insurance is [employer]. Reviewed chart and team rounds for pt's medical status and initial discharge needs. DCP met w/patient at bedside; introduced self and role. Patient was found in bed, alert and oriented, cooperative with assessment. Pt confirmed living situation and good support in spouse. Pt expressed preference in returning home when medically stable. Per PT/OT, pt is being recommended to discharge home with spouse assistance. Patient declined home health referral or other community services. Plan: Anticipating discharge home with spouse to transport when medically cleared. CM team will follow closely for coordination of discharge plans. 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 Yes Advance Directives on File Yes History Provided By Patient,Medical Record Prior Living Arrangements House Household Members spouse Type of transporation used prior to Drives own vehicle admit Independent with ADL's Yes Is patient alert and oriented? Yes Caregiver for Another No DME Already Rented / Owned Other Comment CPAP Barriers to Discharge No Discharge Plan Home Referrals Initiated None needed Whiteboard Updated in Patient Room with Yes name and ext. # of C[employer] Grain Or Livestock Farm Manager Comment [phone] Please Provide Date Initial DC 04/17/24 Assessment Was Performed Next Review Type Continued Stay Review
--- NOTE | 2024-04-17 15:50 | P.DS_ITS ---
History of Present Illness History of Present Illness Chief complaint: Right TSA revision Narrative: Brandan is a pleasant 74-year-old male who is postop day #1 s/p revision of right Humeral and glenoid component to reverse total shoulder arthroplasty by Dr. Jacob. This morning patient reports he is feeling well and is ready to be d/c to home. He has been urinating well w/o issue, has worked w/ PT, feels stable ambulating w/o any feelings of instability or lightheadedness. He lives at home w/ his who is willing and able to aid in his post-op care. He has his post-op PT appointment scheduled already w/ [facility]. He has his sling and his post-op pain meds already as well. Patient is retired. Denies fever, chills, chest pain, SOB, nausea, vomiting. 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 Extensive workup has not demonstrated any infection or implant loosening. Risks and benefits of surgery were discussed again including the risk of infection, damage to internal structures, bleeding, nerve injury, instability, need for revision surgery, blood clots, anesthesia and . No guarantees were made regarding outcomes. Patient expressed understanding and accepted these risks and wished to go forward with surgery and consent was signed. Surgeon: Chad Jacob Health And Physical Education Professor: Maria Jarvis Anesthesia Type: General Discharge Providers Provider Date of admission: 04/16/24 06:07 Discharge Date: 04/17/24 Primary care physician: Jesus Manuel Lr MD Consults: 04/16/24 06:00 Consult to Anesthesiology Routine Comment: Consulting Provider: Anesthesiologist Reason for consultation: Regional block for post operative pain control Has provider been notified: No 04/16/24 12:33 Consult to Discharge Planning Routine Comment: Consult to Hospitalist Service Routine Comment: Consulting Provider: Alex Max Reason for consultation: A-fib and COPD Has provider been notified: No Consult to Occupational Therapy Evaluate & Treat Comment: Physician Instructions: Evaluate and treat Consult to Physical Therapy Evaluate & Treat Comment: Physician Instructions: Evaluate and Treat Discharge provider: Maria Jarvis PA-C Summary Hospital Course Discharge Diagnosis: stable s/p revision of right Humeral and glenoid component to reverse total shoulder arthroplasty. Hospital Course: Hospital course complicated by acute SOB in the post-op period, he has a complicated pmhx w/ hep C cirrhosis, chronic pancytopenia, chronic afib with recent watchmann procedure, MELANIE, COPD, obesity, and HTN and so he was admitted for observation overnight. He did well overnight, his sx resolved and he feels well and ready to d/c on POD#1. Exam Vital Signs (past 8 hours): Oxygen Delivery Method Room Air Oxygen Flow Rate 2 Narrative Exam Narrative: Patient sitting comfortably in bedside chair during our interview today. No acute distress. AOx3. Grossly normal alignment of the RUE with mild swelling and some beginning bruising starting around the distal incision site. 5/5 strength with wrist flexion and extension, cloud physicist strength and finger adduction/abduction. Gross sensation intact throughout bilateral upper extremities. Calves soft and non-tender bilaterally. Brisk capillary refill, pulses intact. Post-surgical Aquacel dressing is saturated with blood. Objective Labs 04/17/24 05:25 04/17/24 05:25 Labs: Laboratory Results - last 24 hr 04/17/24 05:25 WBC 8.8 RBC 2.85 L Hgb 10.1 L Hct 28.5 L MCV 100.2 H MCH 35.5 H MCHC 35.4 RDW 13.7 Plt Count 127 L Neut % (Auto) 86.1 H Lymph % (Auto) 5.3 L Henderson % (Auto) 8.6 Eos % (Auto) 0.0 L Baso % (Auto) 0.0 Neut # (Auto) 7600 H Lymph # (Auto) 500 L Henderson # (Auto) 800 Eos # (Auto) 0 Baso # (Auto) 0 Sodium 127 L Potassium 4.7 Chloride 97 L Carbon Dioxide 22 BUN 19 Creatinine 0.65 L Estimated GFR > 60 BUN/Creatinine Ratio 29.2 H Glucose 136 H Calcium 8.8 PFSH Medical History Asthma Cirrhosis Pancytopenia Presence of Watchman left atrial appendage closure device (02/26/24) Fragile skin Easy bruisability Osteoarthritis Enlarged prostate MELANIE on CPAP Former smoker Subacute pansinusitis Chronic a-fib 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) Hyponatremia Thrombocytopenia Lower urinary tract symptoms (LUTS) Erectile dysfunction 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) COPD (chronic obstructive pulmonary disease) Lichen sclerosus HTN (hypertension) Environmental asthma Chronic hepatitis C Colon polyps GI bleed due to NSAIDs (01/2016) Surgical History History of nasal surgery (05/29/12) 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) Hx of tonsillectomy History of vasectomy Hx of LASIK Hx of bilateral cataract extraction Hx of toe surgery (2006) Hx of microdiscectomy (~1998) Hx of repair of left rotator cuff History of arthroplasty of left knee (~2016) History of arthroplasty of right knee (~2014) Social History household members: spouse Smoking Status: Former smoker alcohol intake: current Discharge Assessment & Plan Assessment and Plan Assessment: stable s/p revision of right Humeral and glenoid component to reverse total shoulder arthroplasty. Due to the bloody saturation of his postop Aquacel dressing I decided to change this dressing prior to discharge today. The original post-op Aquacel dressing was removed and then using sterile technique with sterile gloves the patients incision site was cleaned ChloraPrep, there continued to be some bloody drainage from the distal wound and sterile gauze was used to apply pressure. 3 additional sterile mera were then placed over the distal incision site which resolved the continued bleeding. A new Aquacel dressing was then replaced patient's incision. The patient was then monitored for 1+ hours without any continued bleeding into the dressing and therefore was cleared to be discharged to home. Plan of Treatment: 1) Plan to discharge to home today with pending dressing change (see above). 2) Continue multimodal pain management with ice to the shoulder for additional pain control. He has his post-op pain meds at home already. 3) He may resume his pre-op Plavix and ASA as directed by cardiology which will also serve as his post-op DVT prophylaxis. 4) Start outpatient physical therapy to work on range of motion and mobility. 5) Keep dressing intact, clean, dry until 2 week postop appointment. No soaking the incision site in pools or tubs. No topical ointments or creams to the incision site. He is on Plavix and ASA so patient was given strict instructions to call our office if any significant continued bleeding occurs from the incision site into the dressing. 6) Follow up at [facility] orthopedics in 2 weeks for a postop appointment and wound check. All patient and his wifes questions were answered, they demonstrates understanding and are in agreement with the plan. Call our office if any questions or concerns arise. Discharge Plan Discharge Plan Patient Disposition: Home Discharge orders & Medications Prescriptions: New docusate sodium 100 mg Capsule 100 mg PO BID PRN (Reason: constipation) Qty: 30 0RF hydroxyzine HCl 25 mg tablet 25 mg PO QID PRN (Reason: nausea and vomiting, itching, spasms) Qty: 30 0RF ondansetron 4 mg Tablet,Disintegrating 4 mg PO Q8H PRN (Reason: Nausea And Vomiting) Qty: 10 0RF hydrocodone-acetaminophen 5-325 mg tablet 1 tab PO Q6H PRN (Reason: pain) Qty: 30 0RF Continued multivitamin Capsule 1 cap PO DAILY Qty: 0 doxazosin [Cardura] 8 MG tablet 8 mg PO BEDTIME Qty: 0 fluticasone propionate 50 mcg/actuation Blister With Device 2 inh INHALATION DAILY omeprazole 40 mg Capsule,Delayed Release(Dr/Ec) 40 mg PO BID loratadine 10 mg Tablet 10 mg PO DAILY oxycodone 5 mg tablet 5 mg PO Q4-6H PRN (Reason: pain (scale score 7-10)) Qty: 20 0RF Rx Instructions: take 1-2 tablets by mouth every 4-6 hours as needed for severe pain cyclobenzaprine 5 mg tablet 5 mg PO BEDTIME PRN (Reason: muscle spasm) Qty: 14 0RF Rx Instructions: take 1 tablet by mouth before bed as needed for muscle spasms fluticasone propion-salmeterol 250-50 mcg/dose Blister With Device 1 inh INHALATION BID metoprolol succinate 50 mg Tablet Extended Release 24 Hr 50 mg PO BEDTIME clopidogrel 75 mg Tablet 75 mg PO DAILY amlodipine 5 mg Tablet 5 mg PO DAILY telmisartan 80 mg Tablet 80 mg PO BEDTIME aspirin 81 mg Capsule 81 mg PO DAILY acetaminophen 650 mg Tablet Extended Release 650 mg PO Q12H albuterol sulfate 90 mcg/actuation HFA aerosol inhaler 2 puff inhalation QD-TID finasteride 5 mg tablet 5 mg PO BEDTIME Follow up/Referrals: Jesus Manuel Lr MD [Primary Care Provider] - Chad Jacob MD [Physician] - (Follow up at [facility] as scheduled in 2 weeks. ) Diet/Activity/Treatments Diet: Diet as Tolerated Activity: Nonweightbearing to the surgical extremity. Remain in sling w/ no external rotation past neutral for 6 weeks. Cold/Heat Therapy: Ice to the shoulder for additional pain control. Skin/Wound/Dressing Care Report to your healthcare provider any signs of infection, such as:: chills, fever, night sweats, unusual drainage and unusual redness Dressing: Keep dressing intact, clean and dry until 2 week post-op appointment. No soaking the incision site in pools or tubs. No topical ointments or creams to the incision site. Visit Report/Discharge Packet Instructions: DI for Prescription Opioid Use, DI for Shoulder Replacement Stand Alone Forms: Patient Portal/API, Stroke Signs & Symptoms, Surgery Discharge Discharge Data Primary Care Provider: Jesus Manuel Lr Quality VTE Deep Vein Thrombosis/Pulmonary Embolism Present on Admission: No
== END 2024-04-17 14:10 | disposition home or self-care (01) | DRG 483 ==
PROVIDERS: Physician Assistant Surgical; Admitting Provider Orthopaedic Surgery; Family Provider Family Medicine; PCP Family Medicine; Referring Provider Orthopaedic Surgery; Visit Provider Orthopaedic Surgery
PROC: 0RPJ0JZ Removal of Synthetic Substitute from Right Shoulder Joint, Open Approach (ICD-10-PCS; CPT 23472; principal; 2024-04-16 07:45)
DX: T84.098A Other mechanical complication of other internal joint prosthesis, initial encounter (principal); I48.20 Chronic atrial fibrillation, unspecified; Z68.41 Body mass index [BMI] 40.0-44.9, adult; D61.818 Other pancytopenia; E66.01 Morbid (severe) obesity due to excess calories; I10 Essential (primary) hypertension; N40.0 Benign prostatic hyperplasia without lower urinary tract symptoms; G47.33 Obstructive sleep apnea (adult) (pediatric); J44.9 Chronic obstructive pulmonary disease, unspecified; R06.02 Shortness of breath; B19.20 Unspecified viral hepatitis C without hepatic coma; Z95.818 Presence of other cardiac implants and grafts; Z87.891 Personal history of nicotine dependence; Z79.02 Long term (current) use of antithrombotics/antiplatelets
CPT/HCPCS: 36415; 64415; 73020; 80048; 85025; 87070; 87075; 87176; 87205; 94640; 97161; 97165; 97535; C1713; C1776; J0171; J0330; J0690; J1100; J1170; J2405; J2704; J7613